=== PATIENT | female | born 1930 | race Hispanic/Latino ===

== ENCOUNTER 2016-05-14 16:02 | Emergency (ER) | payer OTHER ==
[~2016-05-14] VITALS: Ht 157.5 cm; Wt 62.6 kg
[2016-05-14 16:51] LABS: ABSOLUTE BASOPHIL COUNT 0 /CUMM (0.0-0.2); ABSOLUTE EOSINOPHIL COUNT 0 /CUMM (0.0-0.7); ABSOLUTE GRANULOCYTE CT 3.2 /CUMM (1.4-6.5); ABSOLUTE LYMPH COUNT 0.6 /CUMM (1.2-3.4); ABSOLUTE MONOCYTE COUNT 0.2 /CUMM (0.10-0.60); BASOPHIL % 0 % (0.0-2.0); EOSINOPHIL % 0.3 % (0-5); HEMATOCRIT 35.9 % (37-47); MEAN CORPUSCULAR HGB 24.6 PG (27.0-31.0); MEAN CORPUSCULAR HGB CONC 31.9 G/DL (33.0-37.0); MEAN CORPUSCULAR VOLUME 77.1 FL (81.0-99.0); MEAN PLATELET VOLUME 7.7 FL (7.4-10.4); PLATELET COUNT 230 /CUMM (130-400); RBC DISTRIBUTION WIDTH 16.5 % (11.5-14.5); RED BLOOD CELL CT 4.66 /CUMM (4.20-5.40); WHITE BLOOD CELL COUNT 4.1 /CUMM (4.8-10.8)
[2016-05-14 16:52] LABS: GRANULOCYTE % 79.6 % (42.2-75.2)
--- NOTE | 2016-05-14 18:11 | ED GI/GU/ABDOMINAL COMPLAINT ---
History of Present Illness General Chief Complaint: Nausea, Vomiting, Diarrhea Stated Complaint: N/V/D Source: patient Exam Limitations: no limitations Vital Signs & Intake/Output Vital Signs & Intake/Output Vital Signs Date Time Temp Pulse Resp B/P Pulse O2 O2 Flow FiO2 Ox Delivery Rate 05/14 1920 66 18 162/67 95 05/14 1625 98.0 89 18 141/74 99 Room Air ED Intake and Output 05/15 0000 05/14 1200 Intake Total 500 Output Total Balance 500 Intake, IV 500 Patient 138 lb Weight Allergies Coded Allergies: No Known Allergies (05/14/16) Reconcile Medications Hyoscyamine (Levsin) 0.125 MG TABLET 1 TAB PO Q4 PRN ABDOMINAL SPASMS Ondansetron (Zofran Odt) 4 MG TAB.RAPDIS 1 TAB SL TID PRN NAUSEA Triage Note: PT TO ED FOR THREE DAYS OF NVD, NO KNOWN SICK CONTACTS. REPORTS DIARRHEA X 4 TODAY, NO VOMITING TODAY, CRAMPY ABD PAIN. Triage Nurses Notes Reviewed? yes ? N Is pt currently ? No Onset: Gradual Duration: day(s): (3) Timing: remote history Quality/Severity: vomiting Severity Numbers: 5 Radiation: no radiation Activities at Onset: none Prior Abdominal Problems: similar symptoms Past Sexual History: Unobtainable at this time No Modifying Factors: none HPI: Patient is an 86-year-old female presenting to the emergency department with chief complaint of nausea vomiting and diarrhea going on for the past 3 days. She reports it started with nausea 3 days ago after eating fruit that she brought from the grocery store. She then vomited 2 or 3 times at home. No blood in the vomit. Patient reports that diarrhea then developed. She reports 5 episodes daily since onset. No recent travel. No recent antibiotic use. No sick contacts. Denies abdominal pain. No fevers or chills. Positive malaise. She's been able to drink water today without nausea or vomiting. No chest pain palpitations or shortness of breath. (LUIS MIGUEL DOCKERY) Past History Travel History Traveled to [place] past 21 day No Medical History Any Pertinent Medical History? see below for history Neurological: INSOMNIA EENT: SEASONAL ALLERGIES Cardiovascular: NONE Respiratory: NONE Gastrointestinal: NONE Hepatic: NONE Renal: NONE Musculoskeletal: NONE Psychiatric: NONE Endocrine: NONE Blood Disorders: NONE Cancer(s): NONE Surgical History Surgical History: non-contributory Psychosocial History What is your primary language Azerbaijani Tobacco Use: Never used ETOH Use: denies use Illicit Drug Use: denies illicit drug use Family History Hx Contributory? No (LUIS MIGUEL DOCKERY) Review of Systems Review of Systems Constitutional: Reports: see HPI, malaise. Comments Review of systems: See HPI, All other systems negative. Constitutional, no chills fever or weight loss HEENT: No visual changes no sore throat no congestion Cardiovascular: No chest pain ,palpitation , orthopnea or ankle swelling Skin, no jaundice no rashes Respiratory: No dyspnea cough sputum or hemoptysis GI: Nausea, vomiting, diarrhea : No dysuria No hematuria Muscle skeletal: no back pain, no neck pain, Neurologic: No numbness no confusion Psych: No stress anxiety Immunology: No splenectomy or history of AIDS (LUIS MIGUEL DOCKERY) Physical Exam Physical Exam General Appearance: well developed/nourished, no apparent distress, alert, awake , comfortable Gastrointestinal: normal bowel sounds, soft, non-tender Comments: Well-developed well-nourished person in no acute distress HEENT: Normal EENT exam, extraocular motion intact, no nystagmus. Pupils equally round and reactive to light and accommodation. Nose is atraumatic. External auditory canal and Tympanic membranes clear. Pharynx normal. No swelling or edema. Neck: Supple, no lymphadenopathy, normal range of motion without pain or tenderness Back: Nontender, no CVA tenderness. Cardiovascular: Regular rate and rhythms no murmurs rubs or gallops, normal JVP Respiratory: Chest nontender. No respiratory distress.breath sounds clear to auscultation bilaterally Abdomen: Soft, nontender nondistended, no appreciable organomegaly. Normal bowel sounds. No ascites, no rebound or guarding. 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 Extremity: No edema, no calf tenderness to palpation, normal and equal pulses. Neuro: Alert oriented x3 Skin: No appreciable rash on exposed skin, skin is warm and dry. Psych: Mood and affect is normal, memory and judgment is normal. Core Measures ACS in differential dx? No Severe Sepsis Present: No Septic Shock Present: No (LUIS MIGUEL DOCKERY) Progress Differential Diagnosis: appendicitis, biliary colic, cholecystitis, diverticulitis, gastritis, pancreatitis Plan of Care: Orders Procedure Date/time Status RAPID VIRAL INFLUENZA A 05/14 182 Complete COMPREHENSIVE METABOLIC PANEL 05/14 162 Complete CBC WITHOUT DIFFERENTIAL 05/14 162 Complete Laboratory Tests 05/14/16 1736: Anion Gap 17 H, Estimated GFR > 60, BUN/Creatinine Ratio 18.6, Glucose 115 H, Calcium 9.4, Total Bilirubin 1.0, AST 27, ALT 23, Alkaline Phosphatase 93, Total Protein 7.6, Albumin 4.5, Globulin 3.1, Albumin/Globulin Ratio 1.5, CBC w Diff NO MAN DIFF REQ, RBC 4.66, MCV 77.1 L, MCH 24.6 L, RDW 16.5 H, MPV 7.7, Gran % 79.6 H, Lymphocytes % 14.7 L, Monocytes % 5.4, Eosinophils % 0.3, Basophils % 0 L, Absolute Granulocytes 3.2, Absolute Lymphocytes 0.6 L, Absolute Monocytes 0.2, Absolute Eosinophils 0, Absolute Basophils 0, PUBS MCHC 31.9 L Microbiology 05/14 1809 STOOL: Clostridium difficile Toxin A & B - CAN Cancelled: SPECIMEN NEVER RECEIVED. PATIENT DEPARTED [facility] 05/14 1809 STOOL: Stool Culture - CAN Cancelled: SPECIMEN NEVER RECEIVED. PATIENT DEPARTED [facility] Initial ED EKG: none Comments: 05/14/2016 6:51:19 PM patient is well-appearing afebrile in no acute distress. No abdominal pain on exam. She reports nausea vomiting and diarrhea over the past 3 days. She's been able to stay hydrated today. STILL making urine. Likely viral process. We will assess lab work to make sure she is not dehydrated. IV fluids initiated. Patient declined pain medication. 05/14/2016 7:26:51 PM and reevaluation patient is still afebrile, noted abdominal tenderness. She was informed of all lab work results. Feeling slight improvement after IV fluids. She was given a prescription to drop off a stool culture to the lab. She was also given a cup. Discussed with Dr. Tavera and he agrees to plan. Likely viral in nature. (MAGNO SINGH,LUIS MIGUEL) Departure Departure Time of Disposition: 1914 Disposition: HOME OR SELF CARE Condition: Stable Clinical Impression Primary Impression: Nausea vomiting and diarrhea Ruled Out Impressions: Nausea & vomiting Referrals: LACI NAYAK,CHAVO Marie (PCP/Family) Additional Instructions: Follow-up with your primary care physician call to make an appointment. Increase fluids. Take Levsin and Zofran as prescribed. Make sure you bring a sample of stool to the lab for evaluation. YOU WERE given a prescription for this. Return for worsening symptoms or concerns. Departure Forms: Customer Survey D/C INS-APPENDICITIS EXCLUSION General Discharge Information Prescriptions: Current Visit Scripts Hyoscyamine (Levsin) 1 TAB PO Q4 PRN ABDOMINAL SPASMS #40 TAB Ondansetron (Zofran Odt) 1 TAB SL TID PRN NAUSEA #10 TAB (LUIS MIGUEL DOCKERY) PA/REAL ESTATE DIRECTOR Co-Sign Statement Statement: ED Attending supervision documentation- [] I saw and evaluated the patient. I have also reviewed all the pertinent lab results and diagnostic results. I agree with the findings and the plan of care as documented in the PA's/REAL ESTATE DIRECTOR's documentation. [x] I have reviewed the ED Record and agree with the PA's/REAL ESTATE DIRECTOR's documentation. [] Additions or exceptions (if any) to the PAs/REAL ESTATE DIRECTOR's note and plan are summarized below: [] (MARY KATE NAYAK,HELDER Guerrero)
[2016-05-14] MEDS ORDERED: LEVSIN0.125 M1 PO (19:17)
[2016-05-14] MEDS ORDERED: ZOFRAN ODT4 M1 SL (19:17)
[2016-05-14 19:20] VITALS: BP 162/67
== END 2016-05-14 19:41 ==
LOC: ERH 16:02
PROVIDERS: Emergency Medicine
DX: R11.2 Nausea with vomiting, unspecified (principal); R19.7 Diarrhea, unspecified
CPT/HCPCS: 87045; 87804; 87804-59

== ENCOUNTER 2018-01-08 23:54 | Emergency (ER) | payer OTHER ==
[~2018-01-08 23:54] MED LIST: LEVSIN0.125 M1 PO; ZOFRAN ODT4 M1 SL
--- NOTE | 2018-01-09 00:36 | ED GENERAL ADULT ---
History of Present Illness General Chief Complaint: Lower Extremity Problems Stated Complaint: BIBA LEG PAIN Source: patient Exam Limitations: no limitations Vital Signs & Intake/Output Vital Signs & Intake/Output Vital Signs Date Time Temp Pulse Resp B/P B/P Pulse O2 O2 Flow FiO2 Mean Ox Delivery Rate 01/09 0039 97.2 77 22 133/70 98 Allergies Coded Allergies: No Known Allergies (05/14/16) Reconcile Medications Esomeprazole Magnesium (Nexium) 20 MG CAPSULE.DR 1 CAP PO DAILY GERD ( Reported) Fexofenadine HCl (Eileen Allergy) 60 MG TABLET 1 TAB PO DAILY ALLERGY ( Reported) Oxycodone HCl/Acetaminophen (Percocet 10-325 MG Tablet) 10 MG-325 MG TABLET 1 TAB PO BID PAIN (Reported) Temazepam (Restoril) 15 MG CAPSULE 1 CAP PO QPM SLEEP (Reported) Triage Note: PER PT I AM HERE ALL THE TIME FOR PAIN ALREADY TOOK MY PERCOCET SO I THOUGHT I WOULD COME IN, Triage Nurses Notes Reviewed? yes Onset: Gradual Duration: hour(s): Timing: recent history Injury Environment: home Severity: mild Modifying Factors: Improves With: rest. Associated Symptoms: muscle cramps HPI: 87 yo woman presents with muscle aches in lower extremities. She notes that she has taken percocet twice a day for a year, but that she ran out last night. "My muscles were so sore that I couldn't even go to latter day." She notes no trauma or injury. "I just need some percocet so I can see my doctor tomorrow and get a refill. She is otherwise well. Past History Travel History Traveled to [place] past 21 day No Medical History Any Pertinent Medical History? see below for history Neurological: INSOMNIA EENT: SEASONAL ALLERGIES Cardiovascular: NONE Respiratory: NONE Gastrointestinal: NONE Hepatic: NONE Renal: NONE Musculoskeletal: NONE Psychiatric: NONE Endocrine: NONE Blood Disorders: NONE Cancer(s): NONE Surgical History Surgical History: non-contributory Psychosocial History What is your primary language Uzbek Tobacco Use: Never used Family History Hx Contributory? No Review of Systems Review of Systems Constitutional: Reports: no symptoms. EENTM: Reports: no symptoms. Respiratory: Reports: no symptoms. Cardiovascular: Reports: no symptoms. GI: Reports: no symptoms. Genitourinary: Reports: no symptoms. Musculoskeletal: Reports: no symptoms. Skin: Reports: no symptoms. Neurological/Psychological: Reports: no symptoms. Hematologic/Endocrine: Reports: no symptoms. Immunologic/Allergic: Reports: no symptoms. All Other Systems: Reviewed and Negative Physical Exam Physical Exam General Appearance: well developed/nourished, mild distress Comments: Physical Exam Physical Exam General Appearance: well developed/nourished, no apparent distress Head: atraumatic, normal appearance Eyes: Bilateral: normal appearance. Ears, Nose, Throat: normal pharynx, normal ENT inspection Neck: normal inspection, supple, full range of motion Respiratory: normal breath sounds, chest non-tender, no respiratory distress, quiet respiration, lungs clear Cardiovascular: regular rate/rhythm Gastrointestinal: normal bowel sounds, soft, non-tender, no organomegaly Back: normal inspection, normal range of motion Extremities: normal inspection, normal capillary refill, normal range of motion, no edema, mild diffuse muscle spasm, 2+distal pulse, no joint involvement. Neurologic/Psych: no motor/sensory deficits, awake, alert, oriented x 3 Skin: intact, normal color, warm/dry Core Measures ACS in differential dx? No CVA/TIA Diagnosis: No Sepsis Present: No Sepsis Focused Exam Completed? No Progress Differential Diagnoses I considered the following diagnoses in my evaluation of the patient: opioid withdrawal, muscle spasm vs other. WELLs criteria zero for DVT Plan of Care: see below. Initial ED EKG: none Departure Departure Disposition: HOME OR SELF CARE Condition: Stable Clinical Impression Primary Impression: Myalgia Secondary Impressions: Opioid withdrawal Referrals: Koko NAYAK,Eric Marie (PCP/Family) Departure Forms: Customer Survey General Discharge Information Comments pt comfortable in the Ed except for mild muscle cramps of lower extremities... pt ran out of percocet... gave one percocet in ED... she will follow up with her pmd for refill tomorrow. Critical Care Note Critical Care Note Critical Care Time: non-applicable
[2018-01-09 00:39] VITALS: BP 133/70
[2018-01-09] MEDS ORDERED: PERCOCET 10-321 EACH PO (00:46)
[2018-01-09] MEDS ORDERED: RESTORIL15 M1 PO (00:47)
[2018-01-09] MEDS ORDERED: NEXIUM20 M1 PO (00:47)
[2018-01-09] MEDS ORDERED: ALLEGRA ALLERGY60 M1 PO (00:48)
== END 2018-01-09 01:30 ==
LOC: ERH 23:54
DX: M79.1 Myalgia (principal); F11.23 Opioid dependence with withdrawal; G47.00 Insomnia, unspecified